=== PATIENT | female | born 1995 | race Caucasian/White ===

== ENCOUNTER 2020-10-10 11:27 | Inpatient (IN) | payer OTHER, SELFPAY ==
[~2020-10-10] VITALS: Ht 163.8 cm; Wt 89.8 kg
[2020-10-10 12:56] LABS: BASOPHILS % (AUTO) 0.6 % (0.0-2.0); EOSINOPHILS % (AUTO) 0.3 % (0.0-4.0); HEMATOCRIT 36.2 % (36-48); LYMPHOCYTES # (AUTO) 1.2 K/uL (1.0-5.5); LYMPHOCYTES % (AUTO) 14.9 % (20.5-51.5); MEAN CORPUSCULAR HEMOGLOBIN 28 pg (27-31); MEAN CORPUSCULAR HGB CONC 33 % (32-36); MEAN CORPUSCULAR VOLUME 85 fL (79.0-98.0); MONOCYTES # (AUTO) 0.4 K/uL (0.0-1.0); MONOCYTES % (AUTO) 4.8 % (1.7-9.3); NEUTROPHILS # (AUTO) 6.6 K/uL (1.8-7.7); NEUTROPHILS % (AUTO) 79.4 % (40.0-70.0); PLATELET COUNT (AUTO) 168 K/uL (130-430); RED BLOOD CELL COUNT(AUTO) 4.25 MIL/uL (4.2-6.2); RED CELL DISTRIBUTION WIDTH 15.9 % (9.0-15.0); WHITE BLOOD COUNT (AUTO) 8.3 K/uL (4.8-10.8)
[2020-10-10 12:59] LABS: BILIRUBIN,URINE NEGATIVE (NEGATIVE); CLARITY/URINE CLOUDY (CLEAR); COLOR,URINE YELLOW (YELLOW); GLUCOSE,URINE NEGATIVE (NEGATIVE); KETONES,URINE NEGATIVE (NEGATIVE); LEUKOCYTE ESTERASE ,URINE NEGATIVE (NEGATIVE); NITRITE, URINE NEGATIVE (NEGATIVE); PH,URINE 6.5 (5.0-8.0); PROTEIN URINE 3+ (NEGATIVE); UROBILINOGEN,URINE 0.2 (0.2-1.0)
[2020-10-10 13:02] LABS: BLOOD, URINE TRACE (NEGATIVE)
[2020-10-10 13:16] LABS: CREATININE 0.92 mg/dL (0.55-1.30); POTASSIUM 4.5 mmol/L (3.5-5.1)
[2020-10-10 13:18] LABS: BACTERIA,URINE FEW /HPF (None Seen); HYALINE CASTS, URINE 0-10 /LPF (None Seen); MUCUS,URINE 1+ /LPF (None Seen)
[2020-10-10 13:20] LABS: ALBUMIN 1.4 g/dL (3.4-4.8)
[2020-10-10 13:37] LABS: TOTAL BILIRUBIN 0.1 mg/dL (0.0-1.0)
[2020-10-10] MEDS: LR 1,000 ML IV SCH ×2 (14:58→21:35)
[2020-10-10] MEDS ORDERED: hydrALAZINE HCL 20 MG/ML VIAL IVP PRN (21:15)
[2020-10-10] MEDS ORDERED: MAGNESIUM SULFATE IN WATER 100 ML IV ONE (22:15)
[2020-10-10] MEDS ORDERED: MAGNESIUM SULFATE IN WATER 500 ML IV PRN (22:15)
[2020-10-11] MEDS ORDERED: LR 1,000 ML IV ONE (04:00)
[2020-10-11] MEDS ORDERED: CEFAZOLIN 2 GM IVPB PREMIX 50 ML IV ONE ×2 (04:00→05:17)
[2020-10-11] MEDS ORDERED: MORPHINE SULFATE 10MG/10ML PF AMP ONE (06:13)
[2020-10-11] MEDS ORDERED: ONDANSETRON HCL 4 MG/2 ML VIAL IVP PRN (06:45)
[2020-10-11] MEDS ORDERED: KETOROLAC TROMETHAMINE 60 MG/2 ML VIAL IM PRN (06:45)
[2020-10-11] MEDS ORDERED: NALBUPHINE HCL 10 MG/ML AMP IVP PRN (06:45)
[2020-10-11] MEDS ORDERED: DIPHENHYDRAMINE INJ 50 MG/ML VIAL IVP PRN (06:45)
[2020-10-11] MEDS ORDERED: NALOXONE HCL 0.4 MG/ML AMP (NARCAN) IVP PRN ×2 (06:45)
[2020-10-11] MEDS ORDERED: MORPHINE SULFATE 10MG/10ML PF AMP SP SCH (06:45)
[2020-10-11] MEDS ORDERED: fentaNYL CITRATE/PF 100 MCG/2 ML AMP IVP PRN ×2 (06:45)
[2020-10-11 07:18] VITALS: BP_SYST 130
[2020-10-11] MEDS ORDERED: HYDROcodone/ACETAMIN 5-325 MG TAB (NORCO/ VICODIN) PO PRN (07:45)
[2020-10-11] MEDS ORDERED: MAGNESIUM SULFATE IN WATER 500 ML IV PRN (07:45)
[2020-10-11] MEDS ORDERED: ceFAZolin SODIUM 1 GM in D5W 50 ML IV SCH (08:00)
[2020-10-11] MEDS ORDERED: LABETALOL HCL 100 MG TABLET PO SCH (09:00)
[2020-10-11] MEDS: ceFAZolin SODIUM 1 GM in D5W 50 ML IV SCH ×2 (12:27→18:20)
[2020-10-11] MEDS ORDERED: OXYTOCIN/0.9 % SODIUM CHLORIDE 1,000 ML IV ONE ×2 (14:00→17:39)
[2020-10-11] MEDS: OXYCODONE/ACETAMINOPHEN 5-325 TABLET PO PRN (20:05)
[2020-10-11] MEDS: LABETALOL HCL 100 MG TABLET PO SCH (21:00)
[2020-10-12] MEDS: IBUPROFEN 600 MG TABLET PO PRN ×5 (00:04→23:47)
[2020-10-12] MEDS: ceFAZolin SODIUM 1 GM in D5W 50 ML IV SCH (00:05)
[2020-10-12] MEDS: OXYCODONE/ACETAMINOPHEN 5-325 TABLET PO PRN ×5 (02:50→20:31)
[2020-10-12] MEDS: DOCUSATE SODIUM 100 MG CAPSULE PO PRN (09:07)
[2020-10-12] MEDS: LABETALOL HCL 100 MG TABLET PO SCH ×2 (09:09→21:01)
[2020-10-12] MEDS: SIMETHICONE 80 MG TAB.CHEW PO PRN ×3 (09:09→21:01)
[2020-10-12 11:33] LABS: BASOPHILS % (AUTO) 0.4 % (0.0-2.0); EOSINOPHILS % (AUTO) 0.3 % (0.0-4.0); HEMATOCRIT 29.1 % (36-48); HEMOGLOBIN 9.4 g/dL (12.0-16.0); LYMPHOCYTES # (AUTO) 1.3 K/uL (1.0-5.5); LYMPHOCYTES % (AUTO) 10.6 % (20.5-51.5); MEAN CORPUSCULAR HEMOGLOBIN 28 pg (27-31); MEAN CORPUSCULAR HGB CONC 32 % (32-36); MEAN CORPUSCULAR VOLUME 87 fL (79.0-98.0); MONOCYTES # (AUTO) 0.7 K/uL (0.0-1.0); MONOCYTES % (AUTO) 5.8 % (1.7-9.3); NEUTROPHILS % (AUTO) 82.9 % (40.0-70.0); PLATELET COUNT (AUTO) 172 K/uL (130-430); RED BLOOD CELL COUNT(AUTO) 3.35 MIL/uL (4.2-6.2); RED CELL DISTRIBUTION WIDTH 16.4 % (9.0-15.0)
[2020-10-13] MEDS: OXYCODONE/ACETAMINOPHEN 5-325 TABLET PO PRN ×3 (02:04→13:20)
[2020-10-13] MEDS: IBUPROFEN 600 MG TABLET PO PRN ×3 (05:41→18:26)
[2020-10-13] MEDS: LABETALOL HCL 100 MG TABLET PO SCH ×2 (08:57→21:00)
[2020-10-13] MEDS: DOCUSATE SODIUM 100 MG CAPSULE PO PRN (10:14)
[2020-10-13] MEDS: SIMETHICONE 80 MG TAB.CHEW PO PRN ×2 (10:15→13:20)
[2020-10-13 20:07] LABS: FTA-Ab (T PALLIDUM) Non Reactive (Non Reactive)
[2020-10-14] MEDS: OXYCODONE/ACETAMINOPHEN 5-325 TABLET PO PRN ×2 (01:10→09:07)
[2020-10-14] MEDS: SIMETHICONE 80 MG TAB.CHEW PO PRN (01:10)
[2020-10-14] MEDS: DOCUSATE SODIUM 100 MG CAPSULE PO PRN (01:10)
[2020-10-14] MEDS: IBUPROFEN 600 MG TABLET PO PRN ×2 (01:10→06:42)
[2020-10-14] MEDS: LABETALOL HCL 100 MG TABLET PO SCH (08:56)
[2020-10-14] MEDS ORDERED: DIPH-TET-PERTUS Vaccine 0.5 ML VIAL (ADACEL) I.M. PRN (10:15)
== END 2020-10-14 11:00 | disposition home or self-care (01) | DRG 540 ==
LOC: SPU 11:27 → OBSVTOIN 21:00
PROVIDERS: ADMIT Obstetrics & Gynecology; ATTEND Obstetrics & Gynecology
PROC: 10D00Z1 Extraction of Products of Conception, Low, Open Approach (ICD-10-PCS; principal; 2020-10-11 06:00)
DX: O14.94 Unspecified pre-eclampsia, complicating childbirth (principal); Z20.822 Contact with and (suspected) exposure to COVID-19; Z3A.37 37 weeks gestation of pregnancy; Z37.0 Single live birth
CPT/HCPCS: 36415; 80053; 81000-TC; 82962; 85025; 86592; 86780; 86886; 86900; 86901; 87086; 90715; 94760; G0378; J0360; J0690; J2274; J2590; J3475; J7060; J7120